=== PATIENT | female | born 1950 | race Caucasian/White ===

== ENCOUNTER → 2016-12-23 | Outpatient (REF) ==
[~2016-12-23] MED LIST: DIURETIC; NABUMETONE500 MG PO; SLEEP AIDE
[2016-12-23 12:59] LABS: THYROID STIMULATING HORMONE 1.3 uIU/mL (0.465-4.680)
== END ==
LOC: ZLAB.WCH 10:35
DX: Z01.89 Encounter for other specified special examinations (principal)

== ENCOUNTER → 2020-10-25 | Outpatient (REF) ==
[2020-10-25 11:30] LABS: CLOSTRIDIUM DIFF A/B NEG; CLOSTRIDIUM DIFF A/B INTERP NonToxigenic C.diff
== END ==
LOC: ZLAB.WCH 09:32
PROVIDERS: Family Medicine
DX: Z01.89 Encounter for other specified special examinations (principal)